=== PATIENT | female | born 2000 | race Two or more races ===

== ENCOUNTER 2022-12-14 20:14 | Emergency (ER) | payer MEDICAID ==
[~2022-12-14] VITALS: Ht 170.2 cm; Wt 68.0 kg
[2022-12-14 20:22] VITALS: TEMP 98.4
[2022-12-14] MEDS ORDERED: CEPHALEXIN MONOHYDRATE 500 MG CAPSULE PO ONE (22:15)
[2022-12-14] MEDS ORDERED: CEPH-558 PO (22:32)
[2022-12-14 22:42] VITALS: BP 122/80; PULSE 90; RESP 15
[2022-12-15] MEDS ORDERED: CEPH-558 PO (07:03)
== END 2022-12-14 22:45 | disposition home or self-care (01) ==
LOC: EMS 20:18
DX: L02.415 Cutaneous abscess of right lower limb (principal); L02.31 Cutaneous abscess of buttock; F17.210 Nicotine dependence, cigarettes, uncomplicated; F15.90 Other stimulant use, unspecified, uncomplicated; F11.90 Opioid use, unspecified, uncomplicated
CPT/HCPCS: 99283